=== PATIENT | male | born 1985 | race Two or more races ===

== ENCOUNTER 2022-06-21 11:23 | Inpatient (IN) | payer MEDICAID, OTHER ==
[~2022-06-21] VITALS: Ht 180.3 cm; Wt 77.4 kg
[2022-06-21] MEDS ORDERED: VANCOMYCIN 1GM/250ML 250 ML IV ONE (13:45)
[2022-06-21] MEDS ORDERED: MORPHINE SULFATE 4 MG/ML SYR/VIAL IV ONE (13:45)
[2022-06-21] MEDS ORDERED: PIPERACILLIN-TAZOB 3.375GM 100 ML IV ONE (13:45)
[2022-06-21] MEDS ORDERED: ONDANSETRON ODT 4 MG TAB PO ONE (13:45)
[2022-06-21] MEDS ORDERED: SODIUM CHLORIDE 0.9% 1,000 ML IV ONE (13:45)
[2022-06-21 14:52] LABS: Basophils # (auto) 0 10 ^3/uL (0-0.2); Basophils % (auto) 0.1 % (0.0-2.0); Eosinophils # (auto) 0 10 ^3/uL (0-0.8); Eosinophils % (auto) 0.2 % (0.0-7.0); Hematocrit 45.9 % (41.0-53.0); Hemoglobin 15.5 g/dL (13.5-17.5); Lymphocytes % (auto) 4.7 % (10.0-50.0); Mean Corpuscular Hemoglobin 29.9 pg (28.0-32.0); Mean Corpuscular Hgb Conc. 33.7 g/dL (32.0-36.0); Mean Corpuscular Volume 88.7 fL (80.0-100.0); Monocytes # (auto) 1.6 10 ^3/uL (0-1.3); Monocytes % (auto) 7.8 % (0.0-12.0); Neutrophils # (auto) 17.4 10 ^3/uL (1.6-8.6); Neutrophils % (auto) 87.2 % (37.0-80.0); Red Blood Cells 5.17 10^6/uL (4.5-5.90); Red Cell Distribution Width 12.9 % (11.8-14.3)
[2022-06-21 15:00] LABS: Albumin 3.6 g/dL (3.4-5.0); BUN/Creatinine Ratio 11.9; Calcium 9.3 mg/dL (8.5-10.1); Potassium 4.3 mmol/L (3.5-5.1)
[2022-06-21 15:03] LABS: Bilirubin, Total 0.4 mg/dL (0.2-1.0); Total Protein 7.8 g/dL (6.4-8.2)
[2022-06-21] MEDS ORDERED: PROPOFOL 10 MG/ML 20 ML IV ONE (16:47)
[2022-06-21] MEDS ORDERED: KETOROLAC TROMETH 30 MG/ML 1ML VIAL ONE (16:48)
[2022-06-21] MEDS ORDERED: GLYCOPYRROLATE 0.2 MG/ML 1ML VIAL ONE (16:48)
[2022-06-21] MEDS ORDERED: DexAMETHasone SOD PHOS 10MG/1ML VIAL INJ ONE (16:48)
[2022-06-21] MEDS ORDERED: ONDANSETRON HCL 4 MG/2 ML VIAL ONE (16:48)
[2022-06-21] MEDS ORDERED: ceFAZolin 1GM/50ML 50 ML IV ONE (17:29)
[2022-06-21] MEDS ORDERED: ACETAMINOPHEN 325 MG TAB PO PRN ×2 (17:30)
[2022-06-21] MEDS ORDERED: MORPHINE SULFATE INJ 2 MG/ml SYRG IV PRN (17:30)
[2022-06-21] MEDS ORDERED: LIDOCAINE HCL 100 MG/5ML (2%) SYRG INJ IV ONE (17:49)
[2022-06-21] MEDS ORDERED: fentaNYL CITRATE 100 MCG/2 ML VL ONE (18:20)
[2022-06-21] MEDS ORDERED: ACETAMINOPHEN 500 MG TAB PO ONE (19:00)
[2022-06-21] MEDS: SODIUM CHLORIDE 0.9% 1,000 ML IV SCH (21:02)
[2022-06-21 21:40] LABS: INR 1.03 (0.9-1.15); Partial Thromboplastin Time 32.5 sec (24.6-33.4)
[2022-06-21 21:56] LABS: Cholesterol 89 mg/dL (< 200); HDL Cholesterol 32 mg/dL (40-59); LDL Cholesterol 47 mg/dL (< 100); Triglycerides 61 mg/dL (< 150)
[2022-06-21] MEDS: CLINDAMYCIN 600MG IV 50 ML IV SCH (22:20)
[2022-06-21 22:47] VITALS: BP 129/78
[2022-06-22] MEDS: SODIUM CHLORIDE 0.9% 1,000 ML IV SCH ×2 (02:30→10:10)
[2022-06-22 05:00] VITALS: BP 119/73
[2022-06-22 05:13] LABS: Basophils # (auto) 0 10 ^3/uL (0-0.2); Eosinophils # (auto) 0 10 ^3/uL (0-0.8); Hematocrit 38.2 % (41.0-53.0); Hemoglobin 12.7 g/dL (13.5-17.5); Lymphocytes # (auto) 0.6 10 ^3/uL (0.4-5.4); Mean Corpuscular Hemoglobin 29.4 pg (28.0-32.0); Mean Corpuscular Hgb Conc. 33.1 g/dL (32.0-36.0); Mean Corpuscular Volume 88.7 fL (80.0-100.0); Monocytes # (auto) 0.7 10 ^3/uL (0-1.3); Monocytes % (auto) 4.7 % (0.0-12.0); Neutrophils # (auto) 14.3 10 ^3/uL (1.6-8.6); Neutrophils % (auto) 91.3 % (37.0-80.0); Red Blood Cells 4.31 10^6/uL (4.5-5.90); Red Cell Distribution Width 12.9 % (11.8-14.3); White Blood Cell 15.6 10^3/uL (4.4-10.8)
[2022-06-22 05:30] LABS: BUN/Creatinine Ratio 16.7; Potassium 4.1 mmol/L (3.5-5.1)
[2022-06-22] MEDS: CLINDAMYCIN 600MG IV 50 ML IV SCH (06:01)
[2022-06-22 07:33] LABS: Urine Bacteria NONE SEEN /hpf (None Seen); Urine Blood Negative /uL (Negative); Urine Mucus FEW (None Seen); Urine Specific Gravity 1.012 (1.001-1.035); Urine WBC 1 /hpf (0 - 3)
[2022-06-22 07:37] LABS: Amphetamine Screen, Urine NEGATIVE (NEGATIVE); Barbiturate Scree,Urine NEGATIVE (NEGATIVE); Benzodiazephine Screen, Urine NEGATIVE (NEGATIVE); Cannabinoid Screen, Urine NEGATIVE (NEGATIVE); Cocaine Screen, Urine NEGATIVE (NEGATIVE); Opiate Scree,Urine NEGATIVE (NEGATIVE); Phencyclidine Screen, Urine NEGATIVE (NEGATIVE)
[2022-06-22 09:00] VITALS: BP 104/55
[2022-06-22] MEDS: ENOXAPARIN SOD 40 MG/0.4 ML SYRINGE SC SCH (09:28)
[2022-06-22] MEDS: cefTRIAXone 1GM/50ML D5W 50 ML IV SCH (09:28)
[2022-06-22 13:00] VITALS: BP 110/64
[2022-06-22] MEDS ORDERED: VANCOMYCIN PER PHARMACY 0 MG IV SCH (13:15)
[2022-06-22] MEDS ORDERED: VANCOMYCIN 1GM/250ML 250 ML IV ONE (13:30)
[2022-06-22 17:00] VITALS: BP 107/65
[2022-06-22] MEDS: HYDROcodone-ACET 5/325MG TAB PO PRN (19:04)
[2022-06-22 22:00] VITALS: BP 119/63
[2022-06-22] MEDS: VANCOMYCIN 1GM/250ML 250 ML IV SCH (22:38)
[2022-06-23 04:53] VITALS: BP 115/69
[2022-06-23] MEDS: VANCOMYCIN 1GM/250ML 250 ML IV SCH ×3 (06:04→22:08)
[2022-06-23 06:34] LABS: Potassium 4.1 mmol/L (3.5-5.1)
[2022-06-23 06:39] LABS: BUN/Creatinine Ratio 25.4; Calcium 8.4 mg/dL (8.5-10.1)
[2022-06-23 06:48] LABS: Basophils # (auto) 0 10 ^3/uL (0-0.2); Eosinophils # (auto) 0.1 10 ^3/uL (0-0.8); Eosinophils % (auto) 1.4 % (0.0-7.0); Hematocrit 37.4 % (41.0-53.0); Hemoglobin 12.6 g/dL (13.5-17.5); Lymphocytes # (auto) 1.9 10 ^3/uL (0.4-5.4); Lymphocytes % (auto) 21.3 % (10.0-50.0); Mean Corpuscular Hemoglobin 30.1 pg (28.0-32.0); Mean Corpuscular Hgb Conc. 33.7 g/dL (32.0-36.0); Mean Corpuscular Volume 89.2 fL (80.0-100.0); Monocytes % (auto) 11.6 % (0.0-12.0); Neutrophils # (auto) 5.8 10 ^3/uL (1.6-8.6); Neutrophils % (auto) 65.7 % (37.0-80.0); Nucleated Red Blood Cells % 0.2 %; Red Blood Cells 4.19 10^6/uL (4.5-5.90); White Blood Cell 8.8 10^3/uL (4.4-10.8)
[2022-06-23 09:00] VITALS: BP 112/67
[2022-06-23] MEDS: cefTRIAXone 1GM/50ML D5W 50 ML IV SCH (09:57)
[2022-06-23] MEDS: ENOXAPARIN SOD 40 MG/0.4 ML SYRINGE SC SCH (09:57)
[2022-06-23 13:00] VITALS: BP 111/57
[2022-06-23 17:00] VITALS: BP 110/69
[2022-06-23 22:00] VITALS: BP 112/63
[2022-06-24] MEDS: HYDROcodone-ACET 5/325MG TAB PO PRN (00:13)
[2022-06-24 05:00] VITALS: BP 109/69
[2022-06-24 05:22] LABS: Basophils # (auto) 0 10 ^3/uL (0-0.2); Basophils % (auto) 0.2 % (0.0-2.0); Eosinophils # (auto) 0.1 10 ^3/uL (0-0.8); Eosinophils % (auto) 1.4 % (0.0-7.0); Hematocrit 40.1 % (41.0-53.0); Hemoglobin 13.2 g/dL (13.5-17.5); Lymphocytes # (auto) 1.6 10 ^3/uL (0.4-5.4); Lymphocytes % (auto) 19.5 % (10.0-50.0); Mean Corpuscular Hemoglobin 29.3 pg (28.0-32.0); Mean Corpuscular Hgb Conc. 32.8 g/dL (32.0-36.0); Mean Corpuscular Volume 89.3 fL (80.0-100.0); Monocytes # (auto) 0.7 10 ^3/uL (0-1.3); Monocytes % (auto) 9.3 % (0.0-12.0); Neutrophils # (auto) 5.5 10 ^3/uL (1.6-8.6); Neutrophils % (auto) 69.6 % (37.0-80.0); Nucleated Red Blood Cells % 0.1 %; Red Blood Cells 4.49 10^6/uL (4.5-5.90); Red Cell Distribution Width 13.2 % (11.8-14.3); White Blood Cell 7.9 10^3/uL (4.4-10.8)
[2022-06-24 05:38] LABS: Albumin 2.6 g/dL (3.4-5.0); Calcium 8.9 mg/dL (8.5-10.1); Potassium 4.3 mmol/L (3.5-5.1)
[2022-06-24 05:43] LABS: Bilirubin, Total 0.1 mg/dL (0.2-1.0); Total Protein 5.8 g/dL (6.4-8.2)
[2022-06-24] MEDS: VANCOMYCIN 1GM/250ML 250 ML IV SCH ×2 (06:05→15:56)
[2022-06-24 09:00] VITALS: BP 109/67
[2022-06-24] MEDS: cefTRIAXone 1GM/50ML D5W 50 ML IV SCH (09:14)
[2022-06-24] MEDS: ENOXAPARIN SOD 40 MG/0.4 ML SYRINGE SC SCH (09:14)
[2022-06-24 12:34] VITALS: BP 119/68
[2022-06-24 13:04] LABS: Hepatitis C Antibody Negative (Negative)
[2022-06-24 17:00] VITALS: BP 120/69
[2022-06-24 22:00] VITALS: BP 115/70
[2022-06-25 05:00] VITALS: BP 110/70
[2022-06-25 08:47] LABS: BUN/Creatinine Ratio 17.4; Calcium 9.2 mg/dL (8.5-10.1); Potassium 4.3 mmol/L (3.5-5.1)
[2022-06-25 09:00] VITALS: BP 109/68
[2022-06-25] MEDS: cefTRIAXone 1GM/50ML D5W 50 ML IV SCH (09:46)
[2022-06-25] MEDS: ENOXAPARIN SOD 40 MG/0.4 ML SYRINGE SC SCH (09:46)
[2022-06-25] MEDS ORDERED: VANCOMYCIN 1GM/250ML 250 ML IV SCH ×2 (10:00)
[2022-06-25] MEDS ORDERED: BACDST PO (11:33)
[2022-06-25 13:24] VITALS: BP 104/58
== END 2022-06-25 15:28 | disposition home or self-care (01) | DRG 383 ==
LOC: ER 11:23 → OVERFLOW 17:21 → EAST 19:45
PROVIDERS: ADMIT Registered Nurse; ATTEND Internal Medicine
PROC: 0H94XZZ Drainage of Neck Skin, External Approach (ICD-10-PCS; principal; 2022-06-21 17:47)
DX: L02.11 Cutaneous abscess of neck (principal); Z20.822 Contact with and (suspected) exposure to COVID-19; Z86.14 Personal history of Methicillin resistant Staphylococcus aureus infection
CPT/HCPCS: 36415; 70450; 70490; 71045; 80048; 80053; 80061; 80202; 80307; 81001; 83036; 83605; 85025; 85610; 85730; 86803; 86850; 86900; 86901; 87040; 87070; 87075; 87077; 87081; 87186; 87205; 87340; 87426; 93005; 96361; 96365; 96367; 96375; G0378; J0690; J0696; J1100; J1885; J2405; J2543; J2704; J3490; Q0162